=== PATIENT | male | born 1995 | race Caucasian/White ===

== ENCOUNTER 2017-04-28 00:07 | Emergency (ER) | payer MEDICAID ==
[~2017-04-28] VITALS: Ht 167.6 cm; Wt 75.0 kg
[2017-04-28 00:11] VITALS: BP 126/68
== END 2017-04-28 07:00 | disposition home or self-care (01) ==
LOC: ER 00:07
DX: T40.1X1A Poisoning by heroin, accidental (unintentional), initial encounter (principal); Y92.9 Unspecified place or not applicable; Z59.0 Homelessness
CPT/HCPCS: 36415; 82947; 82962; 99283